=== PATIENT | female | born 1995 | race Asian ===

== ENCOUNTER 2020-09-28 08:10 | Emergency (ER) | payer BC ==
[~2020-09-28] VITALS: Ht 152.4 cm; Wt 62.6 kg
[2020-09-28 08:17] VITALS: TEMP 98
[2020-09-28 08:53] LABS: PLATELET COUNT 283 K/uL (152-353)
[2020-09-28 09:01] LABS: POTASSIUM 3.8 mmol/L (3.6-5.2)
[2020-09-28 10:17] VITALS: BP 118/68
== END 2020-09-28 10:17 | disposition home or self-care (01) ==
LOC: ED 08:10
PROVIDERS: Family Medicine
DX: O21.0 Mild hyperemesis gravidarum (principal); O23.31 Infections of other parts of urinary tract in pregnancy, first trimester; Z3A.01 Less than 8 weeks gestation of pregnancy
CPT/HCPCS: 80053; 81000; 84702; 85027; 87086; 87088; 96361; 96374; 99284; J2405

== ENCOUNTER 2020-10-05 17:41 | Emergency (ER) | payer BC ==
[~2020-10-05] VITALS: Ht 152.4 cm; Wt 62.6 kg
[2020-10-05 18:00] VITALS: TEMP 98.8
[2020-10-05 18:45] LABS: PLATELET COUNT 295 K/uL (152-353)
[2020-10-05 18:47] LABS: POTASSIUM 3.2 mmol/L (3.6-5.2)
[2020-10-05 19:14] LABS: PARTIAL THROMBOPLASTIN TIME 23.8 SECONDS (24.5-33.6)
[2020-10-05 20:01] VITALS: BP 134/72
== END 2020-10-05 20:03 | disposition home or self-care (01) ==
LOC: ED 17:41
PROVIDERS: Hospitalist
DX: E86.0 Dehydration (principal); O21.9 Vomiting of pregnancy, unspecified; E87.6 Hypokalemia; O23.41 Unspecified infection of urinary tract in pregnancy, first trimester; Z3A.01 Less than 8 weeks gestation of pregnancy
CPT/HCPCS: 80048; 81000; 84702; 85027; 85610; 85730; 96365; 96375; 99284; J0696; J2405; J3490